=== PATIENT | male | born 1955 | race Caucasian/White ===

== ENCOUNTER 2021-10-27 08:19 | Day surgery (SDC) | payer BC ==
[~2021-10-27 08:19] MED LIST: LACTATED RINGERS 1,000 ML IV SCH; LIDOCAINE 1% (10MG/ML) FOR IV START INTRADERMA PRN
[2021-10-27 08:53] VITALS: TEMP 97.8
[2021-10-27] MEDS ORDERED: PROPOFOL 10 MG/ML 20 ML VIAL IV ONE (09:44)
--- NOTE | 2021-10-27 09:59 | P.PCN ---
Date of Procedure: 10/27/21 Procedure(s) Performed: BRIEF HISTORY: Patient is a 66-year-old pleasant white male scheduled for an elective colonoscopy as a part of evaluation of prior history of colon polyps. Last colonoscopy was 6 years ago. PROCEDURE PERFORMED: Colonoscopy. PREOPERATIVE DIAGNOSIS: History of colon polyps. IV sedation per Anesthesia. PROCEDURE: After informed consent was obtained, the patient, was brought into the endoscopy unit. IV sedation was administered by Anesthesia under continuous monitoring. Digital rectal examination was normal. Initially the Olympus CF-160 flexible video colonoscope was then inserted in the rectum, gradually advanced into the cecum without any difficulty. Careful examination was performed as the scope was gradually being withdrawn. Ileocecal valve and the appendiceal orifice were visualized and appeared normal. Prep was excellent. Mucosa of the cecum, ascending colon, transverse colon, descending colon, sigmoid colon, and rectum appeared normal. The left sided diverticulosis. Retroflexion was performed in the rectum and grade 2 internal hemorrhoids were seen. The patient tolerated the procedure well. IMPRESSION: Normal-appearing colon from rectum to cecum with no evidence of colorectal neoplasia. Scattered sigmoid diverticulosis Grade 2 internal hemorrhoids RECOMMENDATIONS: Findings of this examination were discussed with the patient as well as his family. He was advised to have a repeat screening colonoscopy in 5 years because of the prior history of colon polyps..
[2021-10-27 10:06] VITALS: RESP 16
[2021-10-27 10:19] VITALS: BP 160/90; PULSE 67
== END 2021-10-27 10:55 | disposition home or self-care (01) ==
LOC: ORWHC2ENDO 08:19
PROVIDERS: ATTEND Internal Medicine Gastroenterology
DX: Z12.11 Encounter for screening for malignant neoplasm of colon (principal); K57.30 Diverticulosis of large intestine without perforation or abscess without bleeding; K64.1 Second degree hemorrhoids; Z86.010 Personal history of colon polyps; J44.9 Chronic obstructive pulmonary disease, unspecified; G43.909 Migraine, unspecified, not intractable, without status migrainosus; Z79.1 Long term (current) use of non-steroidal anti-inflammatories (NSAID); Z79.899 Other long term (current) drug therapy
CPT/HCPCS: J2704; G0105; 45378

== ENCOUNTER → 2022-09-20 | Outpatient (CLI) | payer MEDICARE, BC ==
--- NOTE | 2022-09-20 15:38 | CA ---
Stress Echo Report Isiah Musa Age: 67 Gender: M : 1955 Exam Date: 09/20/2022 10:31 Exam Location: [facility] Ht (in): 69 Wt (lb): 152 Ordering Physician: Cadence Priest DO Referring Physician: Renetta Littlejohn Educational Psychology Teacher: Britney Ken RDCS Technologist Procedure CPT: Indication: R94.31 ABNORMAL ELECTROCARDIOGRAM [ECG] [EKG] ICD-9 Codes: Rhythm: Patient History: Cardiac Medications: Medications in past 24 hours: Contrast: [facility] Stress Results Protocol: Michael Total dose(mL): 5 Exercise Duration (min:sec): [address] Depression (mm): Angina Score: Fonseca Score: METS: 4.4 Resting HR: 90 Resting BP: 161 / 89 Peak HR: 142 Peak BP: 208 / 108 Max Predicted HR: 155 92 % Max Predicted HR Target HR: 132 Double Product: 94802 Stress Summary: BP Response: Reason for Termination: MAX EXERTION/TARGET HR Cardiac Symptoms: DIFFICULTY IN BREATHING ECG Analysis Resting ECG: Stress ECG: Arrhythmia: Echo Analysis Resting Echo: Peak Echo Analysis: MEASUREMENTS (Male/Female) Normal Values CONCLUSIONS Exercise stress echo line very for excess capacity, low workload level achieved Patient exercises on a Michael protocol for 3 minutes Is very short of breath. Hypertensive response, 280 108 mmHg No ECG is for ischemia no echocardiographic evidence for ischemia Impression very low workload achieved during the stress echo No ECG or echocardiographic evidence for ischemia at this low workload level. Patient is extremely short of breath and was hypertensive Dr. Lalo Gaitan MD (Electronically Signed) Final Date: 20 September 2022 15:37
== END | disposition home or self-care (01) ==
LOC: RADNMMAIN 09:36
PROVIDERS: ATTEND Family Medicine
DX: R94.31 Abnormal electrocardiogram [ECG] [EKG] (principal); I10 Essential (primary) hypertension; R06.02 Shortness of breath
CPT/HCPCS: C8930; Q9950; 93351

== ENCOUNTER 2025-04-11 08:15 | Day surgery (SDC) | payer MEDICARE ==
[2025-04-11] MEDS: IV FLUID CONTINUATION 1,000 ML IV ONE ×2 (08:26→09:03)
[2025-04-11 08:31] VITALS: TEMP 98
[2025-04-11] MEDS: LACTATED RINGERS 1,000 ML IV SCH (08:44)
[2025-04-11] MEDS ORDERED: PROPOFOL 10 MG/ML 20 ML VIAL IV ONE (09:05)
[2025-04-11] MEDS ORDERED: LIDOCAINE 2% (PF) 20 MG/ML 5 ML VIAL ONE (09:05)
--- NOTE | 2025-04-11 09:15 | P.PCN ---
Date of Procedure: 04/11/25 Procedure(s) Performed: BRIEF HISTORY: Patient is a 69-year-old, pleasant, white male scheduled up anoscopy as above evaluation of intermittent dysphagia to solids for the last 2 years duration.. PROCEDURE PERFORMED: Esophagogastroduodenoscopy with biopsy and dilation. PREOPERATIVE DIAGNOSIS: Intermittent dysphagia to solids. IV sedation per anesthesia. PROCEDURE: After informed consent was obtained, the patient was brought into the endoscopy unit. IV sedation was administered by Anesthesia under continuous monitoring. Initially the Olympus GIF-140 video endoscope was inserted into the mouth. Esophagus intubated without any difficulty. It was gradually advanced into the distal esophagus and there was a tight distal esophageal stricture identified. With gentle push I was able to advance the scope into the stomach and duodenum and carefully examined. The bulb and the second part of the d uodenum appeared normal. The scope at this time was withdrawn to the stomach, adequately insufflated with air, and upon careful examination, mucosa of the antrum, and mild gastritis and biopsies were done from this area. Mucosa of the body, cardia and the fundus appeared normal. The scope was then withdrawn into the esophagus. Moderate size hiatal hernia noted. The GE junction was located at 39 cm from the incisors. There was a distal esophageal stricture identified and this was dilated using 12 and 13.5 mm TTS balloon for 30 seconds. There was a mucosal tear with oozing identified that has spontaneously resolved. The rest of the esophagus appeared normal. There were no erosions or ulcerations seen and the patient tolerated the procedure well. IMPRESSION: 1. Distal esophageal stricture status post balloon dilation using 12 and 13.5 mm TTS balloon. 2. Moderate size hiatal hernia 3. Mild antral gastritis. RECOMMENDATIONS: The findings of this examination were discussed with the patient as well as his family. He was advised to follow-up with the biopsy results. Clear liquid diet for 2 hours. Start on omeprazole 20 mg daily and follow antireflux measures. Follow-up in the office in 1 month..
[2025-04-11 09:43] VITALS: BP 148/99; PULSE 67; RESP 16
== END 2025-04-11 10:12 | disposition home or self-care (01) ==
LOC: ORWHC2ENDO 08:15
PROVIDERS: ATTEND Internal Medicine Gastroenterology
DX: K22.2 Esophageal obstruction (principal); K29.50 Unspecified chronic gastritis without bleeding; K31.89 Other diseases of stomach and duodenum; K44.9 Diaphragmatic hernia without obstruction or gangrene; I10 Essential (primary) hypertension; J44.9 Chronic obstructive pulmonary disease, unspecified; Z79.82 Long term (current) use of aspirin; Z79.899 Other long term (current) drug therapy
CPT/HCPCS: 88305; 43239; 43249; J2704; J2003; C1726